=== PATIENT | male | born 1960 | race Caucasian/White ===

== ENCOUNTER 2020-11-10 10:11 | Inpatient (IN) | payer OTHER ==
[2020-11-10] MEDS ORDERED: MAG HYDROX/AL HYDROX/SIMETH 30 ML UNIT-DOSE CUP PO PRN (16:48)
[2020-11-10] MEDS ORDERED: MAGNESIUM HYDROX 2400MG/30ML ORAL SUSPENSION 30 ML CUP PO PRN (16:48)
[2020-11-10] MEDS ORDERED: METHOCARBAMOL 500 MG TABLET PO PRN (16:48)
[2020-11-10] MEDS ORDERED: MENTHOL/PHENOL 1 EACH UD MM PRN (16:48)
[2020-11-10] MEDS ORDERED: IBUPROFEN 400 MG TABLET (FP) PO PRN (16:48)
[2020-11-10] MEDS ORDERED: ONDANSETRON *ODT* 4 MG TABLET SL PRN (16:48)
[2020-11-10] MEDS ORDERED: BISMUTH SUBSALICYLATE 524 MG/30 ML UD PO PRN (16:48)
[2020-11-10] MEDS ORDERED: MAGNESIUM CITRATE 300 ML BOTTLE PO PRN (16:48)
[2020-11-10] MEDS ORDERED: ACETAMINOPHEN 325 MG TABLET (FP) PO PRN ×2 (16:48)
[2020-11-10] MEDS ORDERED: LORazepam 1 MG TABLET PO PRN (16:48)
[2020-11-10 16:56] VITALS: BMI 34.2
[2020-11-10] MEDS: LORazepam 2 MG TABLET PO SCH ×2 (19:34→23:13)
[2020-11-10] MEDS: hydrOXYzine PAMOATE 25 MG CAPSULE (FP) PO SCH ×2 (19:40→23:13)
[2020-11-10] MEDS: PRENATAL VITAMINS W/ FOLIC ACID TABLET (FP) PO SCH (19:40)
[2020-11-10] MEDS: MELATONIN 5 MG TABLETS PO SCH (23:13)
[2020-11-10] MEDS: THIAMINE HCL 100 MG TABLET (FP) PO SCH (23:13)
[2020-11-11] MEDS: LORazepam 2 MG TABLET PO SCH ×4 (05:52→23:25)
[2020-11-11] MEDS: hydrOXYzine PAMOATE 25 MG CAPSULE (FP) PO SCH ×5 (05:53→23:25)
[2020-11-11] MEDS: PRENATAL VITAMINS W/ FOLIC ACID TABLET (FP) PO SCH (10:42)
[2020-11-11] MEDS: METHADONE HCL 5 MG TABLET PO SCH (10:43)
[2020-11-11 13:51] LABS: HEMATOCRIT 33.8 % (35.4-49); HEMOGLOBIN 10.9 GM/dL (11.7-16.9); MCH 25.3 pg (25.7-33.7); MCHC 32.4 g/dl (32.0-35.9); MEAN CELL VOLUME 78.2 fl (80-96); MEAN PLT VOLUME 7.3 fl (7.5-11.1); PLATELET COUNT 246 K/MM3 (134-434); RBC 4.32 M/mm3 (4.00-5.60); RDW 15.5 % (11.9-15.9); WHITE BLOOD COUNT 5.7 K/mm3 (4.0-10.0)
[2020-11-11 13:58] LABS: ALBUMIN 2.5 g/dl (3.4-5.0); BLOOD UREA NITROGEN 14.3 mg/dL (7-18)
[2020-11-11 14:01] LABS: CREATININE 0.6 mg/dL (0.55-1.3)
[2020-11-11 14:03] LABS: TOT PROT 6.4 g/dl (6.4-8.2)
[2020-11-11 14:08] LABS: BILIRUBIN,TOTAL 0.5 mg/dL (0.2-1); CALCIUM 8.1 mg/dL (8.5-10.1)
[2020-11-11] MEDS: THIAMINE HCL 100 MG TABLET (FP) PO SCH (23:25)
[2020-11-11] MEDS: MELATONIN 5 MG TABLETS PO SCH (23:25)
[2020-11-12] MEDS: hydrOXYzine PAMOATE 25 MG CAPSULE (FP) PO SCH ×2 (05:52→10:30)
[2020-11-12] MEDS: METHADONE HCL 5 MG TABLET PO SCH (05:53)
[2020-11-12] MEDS: LORazepam 1 MG TABLET PO SCH ×2 (05:54→10:30)
[2020-11-12 09:47] VITALS: BP 143/78; PULSE 74; TEMP 97.3
[2020-11-12] MEDS: PRENATAL VITAMINS W/ FOLIC ACID TABLET (FP) PO SCH (10:30)
[2020-11-13] MEDS ORDERED: LORazepam 0.5 MG TABLET PO PRN
[2020-11-13] MEDS ORDERED: LORazepam 0.5 MG TABLET PO SCH (05:00)
[2020-11-14] MEDS ORDERED: LORazepam 0.5 MG TABLET PO ONE (05:00)
== END 2020-11-12 11:36 | disposition home or self-care (01) | DRG 897 ==
LOC: YASAS 10:11 → Y6N 18:19
PROVIDERS: ADMIT Allergy & Immunology; ATTEND Allergy & Immunology
PROC: HZ2ZZZZ Detoxification Services for Substance Abuse Treatment (ICD-10-PCS; principal; 2020-11-10)
DX: F13.130 Sedative, hypnotic or anxiolytic abuse with withdrawal, uncomplicated (principal); F11.20 Opioid dependence, uncomplicated; M06.832 Other specified rheumatoid arthritis, left wrist; M54.5 Low back pain; G89.29 Other chronic pain; R41.3 Other amnesia; K43.2 Incisional hernia without obstruction or gangrene; Z96.651 Presence of right artificial knee joint; Z96.642 Presence of left artificial hip joint; Z87.891 Personal history of nicotine dependence
CPT/HCPCS: 36415; 80053; 85027; 86593; 86780; 93005; 93010; C9803; U0003

== ENCOUNTER 2021-04-30 10:58 | Inpatient (IN) | payer BC, OTHER ==
[2021-04-30 17:05] VITALS: BMI 41.3
[2021-04-30] MEDS ORDERED: MAGNESIUM HYDROX 2400MG/30ML ORAL SUSPENSION 30 ML CUP PO PRN (18:45)
[2021-04-30] MEDS ORDERED: NALOXONE HCL 0.4 MG/ML VIAL IM PRN (18:45)
[2021-04-30] MEDS ORDERED: ACETAMINOPHEN 325 MG TABLET (FP) PO PRN ×2 (18:45)
[2021-04-30] MEDS ORDERED: MENTHOL/PHENOL 1 EACH UD MM PRN (18:45)
[2021-04-30] MEDS ORDERED: MAGNESIUM CITRATE 300 ML BOTTLE PO PRN (18:45)
[2021-04-30] MEDS ORDERED: IBUPROFEN 400 MG TABLET (FP) PO PRN (18:45)
[2021-04-30] MEDS ORDERED: methaDONE HCL 10 MG TABLET (FOR DETOX USE ONLY) PO ONE (18:45)
[2021-04-30] MEDS ORDERED: MAG HYDROX/AL HYDROX/SIMETH 30 ML UNIT-DOSE CUP PO PRN (18:45)
[2021-04-30] MEDS ORDERED: clonazePAM 0.5 MG ODT TABLETS SL PRN (18:45)
[2021-04-30] MEDS ORDERED: BISMUTH SUBSALICYLATE 524 MG/30 ML PO PRN (18:45)
[2021-04-30] MEDS ORDERED: cloNIDine HCL 0.1 MG TABLET PO PRN (18:45)
[2021-04-30] MEDS: METHOCARBAMOL 500 MG TABLET PO PRN (20:45)
[2021-04-30] MEDS: MELATONIN 5 MG TABLETS PO SCH (23:26)
[2021-04-30] MEDS: THIAMINE HCL 100 MG TABLET (FP) PO SCH (23:26)
[2021-05-01] MEDS ORDERED: methaDONE HCL 10 MG TABLET (FOR DETOX USE ONLY) ONE (08:35)
[2021-05-01] MEDS ORDERED: PRENATAL VITAMINS W/ FOLIC ACID TABLET (FP) PO SCH (10:00)
[2021-05-01] MEDS ORDERED: predniSONE 5 MG TABLET (UD) PO SCH (18:45)
[2021-05-01 22:00] VITALS: PULSE 71
[2021-05-01] MEDS: METHOCARBAMOL 500 MG TABLET PO PRN (22:30)
[2021-05-01] MEDS: MELATONIN 5 MG TABLETS PO SCH (22:31)
[2021-05-01] MEDS: THIAMINE HCL 100 MG TABLET (FP) PO SCH (22:31)
[2021-05-02 07:51] VITALS: BP 165/78; TEMP 97.1
[2021-05-02] MEDS ORDERED: methaDONE HCL 10 MG TABLET (FOR DETOX USE ONLY) PO ONE (10:00)
[2021-05-04] MEDS ORDERED: methaDONE HCL 10 MG TABLET (FOR DETOX USE ONLY) PO ONE (10:00)
== END 2021-05-02 03:07 | disposition left against medical advice (07) | DRG 894 ==
LOC: YASAS 10:58 → Y3N 19:56
PROVIDERS: ADMIT Allergy & Immunology; ATTEND Allergy & Immunology
PROC: HZ2ZZZZ Detoxification Services for Substance Abuse Treatment (ICD-10-PCS; principal; 2021-04-30)
DX: F11.23 Opioid dependence with withdrawal (principal); Z68.41 Body mass index [BMI] 40.0-44.9, adult; M06.9 Rheumatoid arthritis, unspecified; M54.5 Low back pain; G89.29 Other chronic pain; E66.01 Morbid (severe) obesity due to excess calories; R76.11 Nonspecific reaction to tuberculin skin test without active tuberculosis; Z96.651 Presence of right artificial knee joint; Z96.642 Presence of left artificial hip joint; Z87.891 Personal history of nicotine dependence; Z98.890 Other specified postprocedural states
CPT/HCPCS: 93005; 93010; C9803; J0735; U0003; U0005